=== PATIENT | female | born 1985 | race African-American/Black ===

== ENCOUNTER 2017-11-22 19:47 | Emergency (ER) | payer OTHER ==
[~2017-11-22] VITALS: Ht 167.6 cm; Wt 54.0 kg
[2017-11-22] MEDS ORDERED: TETANUS, DIPHTHERIA, PERTUSSIS VAC/PF 0.5ML (>7YR OLD) IM ONE (22:30)
[2017-11-22] MEDS ORDERED: BACITRACIN ZINC OINT UDPKT TOP ONE (22:30)
[2017-11-23 02:14] VITALS: BP 111/79
[2017-11-23] MEDS ORDERED: IBUPROFEN 600MG TABLET PO ONE (02:15)
[2017-11-23] MEDS ORDERED: AMOXICILLIN/POTASSIUM CLAVULANATE 875/125MG TAB PO ONE (02:15)
== END 2017-11-23 02:36 | disposition home or self-care (01) ==
LOC: ER 20:37
DX: S81.852A Open bite, left lower leg, initial encounter (principal); W54.0XXA Bitten by dog, initial encounter; Y93.89 Activity, other specified; Y92.9 Unspecified place or not applicable
CPT/HCPCS: 12002; 73590; 90471; 90715; 99284; A4217; Z7610